=== PATIENT | female | born 1980 | race Caucasian/White ===

== ENCOUNTER 2016-07-01 09:17 | Outpatient (CLI) | payer BC | END 2016-07-01 18:25 | disposition home or self-care (01) | LOC: SCT 09:17 | PROVIDERS: ATTEND Internal Medicine | DX: N20.0 Calculus of kidney (principal); E27.9 Disorder of adrenal gland, unspecified; K57.30 Diverticulosis of large intestine without perforation or abscess without bleeding; K76.0 Fatty (change of) liver, not elsewhere classified; K42.9 Umbilical hernia without obstruction or gangrene | CPT/HCPCS: 74150-TC ==

== ENCOUNTER 2016-10-21 08:20 | Outpatient (CLI) | payer BC | END 2016-10-21 20:46 | disposition home or self-care (01) | LOC: SCT 08:20 | PROVIDERS: ATTEND Internal Medicine | DX: N20.0 Calculus of kidney (principal); E27.8 Other specified disorders of adrenal gland; K42.9 Umbilical hernia without obstruction or gangrene | CPT/HCPCS: 74150-TC ==

== ENCOUNTER 2016-12-09 07:37 | Emergency (ER) | payer BC ==
[~2016-12-09] VITALS: Ht 157.5 cm; Wt 68.0 kg
[2016-12-09 07:41] VITALS: BP_SYST 142
[2016-12-09] MEDS ORDERED: KETOROLAC TROMETHAMINE 60 MG/2 ML VIAL IM ONE (08:00)
[2016-12-09 09:40] LABS: BILIRUBIN,URINE NEGATIVE (NEGATIVE); BLOOD, URINE 3+ (NEGATIVE); CLARITY/URINE CLEAR (CLEAR); COLOR,URINE YELLOW (YELLOW); GLUCOSE,URINE NEGATIVE (NEGATIVE); KETONES,URINE NEGATIVE (NEGATIVE); LEUKOCYTE ESTERASE ,URINE 2+ (NEGATIVE); NITRITE, URINE NEGATIVE (NEGATIVE); PH,URINE 6.5 (5.0-8.0); PROTEIN URINE NEGATIVE (NEGATIVE); UROBILINOGEN,URINE 0.2 (0.2-1.0)
[2016-12-09 09:49] LABS: BACTERIA,URINE FEW /HPF (None Seen); MUCUS,URINE None Seen /LPF (None Seen)
[2016-12-09 09:56] VITALS: BP_SYST 138
== END 2016-12-09 09:56 | disposition home or self-care (01) ==
LOC: SED 07:37
DX: N39.0 Urinary tract infection, site not specified (principal); M54.6 Pain in thoracic spine
CPT/HCPCS: 71020; 81000; 81025; 87086; 87186; 93005; 96372; 99285; J1885

== ENCOUNTER 2017-01-21 07:03 | Emergency (ER) | payer BC ==
[~2017-01-21] VITALS: Ht 157.5 cm; Wt 68.0 kg
[2017-01-21 07:03] VITALS: BP_SYST 151
[2017-01-21 09:03] VITALS: BP_SYST 150
== END 2017-01-21 09:02 | disposition home or self-care (01) ==
LOC: SED 07:03
DX: S20.20XA Contusion of thorax, unspecified, initial encounter (principal); Z91.041 Radiographic dye allergy status; X58.XXXA Exposure to other specified factors, initial encounter; Y93.89 Activity, other specified; Y92.89 Other specified places as the place of occurrence of the external cause; Y99.8 Other external cause status
CPT/HCPCS: 71010; 81025; 99283

== ENCOUNTER 2017-04-28 10:08 | Outpatient (CLI) | payer BC | END 2017-04-28 19:45 | disposition home or self-care (01) | LOC: SCT 10:08 | PROVIDERS: ATTEND Internal Medicine | DX: N20.0 Calculus of kidney (principal); E27.9 Disorder of adrenal gland, unspecified; L68.0 Hirsutism | CPT/HCPCS: 74150-TC ==

== ENCOUNTER 2023-07-21 05:38 | Emergency (ER) | payer BC, OTHER ==
[~2023-07-21] VITALS: Ht 157.5 cm; Wt 74.8 kg
[2023-07-21 05:50] VITALS: BP_SYST 151; PULSE 89; RESP 18; TEMP 98.1; O2SAT 98
[2023-07-21] MEDS: FLUORESCEIN SODIUM 1 MG OPHTHALMIC STRIP OP ONE (06:34)
[2023-07-21] MEDS: TETRACAINE HCL/PF 0.5% OPHTHALMIC DROPS 4 ML OP ONE (06:35)
[2023-07-21] MEDS: KETOROLAC TROMETHAMINE 30 MG VIAL IM ONE (07:28)
[2023-07-21] MEDS ORDERED: APRACLONIDINE HCL 0.5% EYE DROPS 5 ML OP ONE (08:30)
[2023-07-21] MEDS ORDERED: PILOCARPINE 1% OPHTHALMIC DROPS (ISOPTO CARPINE) OP ONE (08:30)
[2023-07-21] MEDS: TIMOLOL MALEATE 0.25% OPHTHALMIC DROPS 5 ML OP ONE (09:06)
[2023-07-21 09:53] VITALS: BP_SYST 138; PULSE 76; RESP 18; TEMP 97; O2SAT 95
== END 2023-07-21 09:44 | disposition short-term general hospital (02) ==
LOC: SED 05:38
DX: H57.11 Ocular pain, right eye (principal); Z91.040 Latex allergy status
CPT/HCPCS: 99285; 96372; J1885